=== PATIENT | female | born 1990 | race Caucasian/White ===

== ENCOUNTER 2017-06-23 12:33 | Emergency (ER) | payer SELFPAY ==
[2017-06-23 14:03] LABS: BASOPHIL % 0.1 % (0-2); PLATELET COUNT 177 x10^3mcL (130-400); RED CELL DISTRIBUTION WIDTH 13.5 % (11.5-14.5)
[2017-06-23 14:12] LABS: CALCIUM 7.3 mg/dL (8.5-10.1); CARBON DIOXIDE 25.8 mmol/L (21-32); CHLORIDE SERUM 103 mmol/L (98-107); CREATININE SERUM 0.6 mg/dL (0.6-1.0); GFR1 > 60 mL/min; GLUCOSE SERUM 197 mg/dL (74-106); POTASSIUM SERUM 3.1 mmol/L (3.5-5.1); SODIUM SERUM 135 mmol/L (136-145)
[2017-06-23 14:15] LABS: ALKALINE PHOSPHATASE 53 U/L (46-116); ALT/SGPT 25 U/L (14-59); AMYLASE 34 U/L (25-115); AST/SGOT 18 U/L (15-37); BILIRUBIN TOTAL 0.2 mg/dL (0.20-1.00); LIPASE 104 IU/L (73-393); TOTAL PROTEIN, SERUM 6.4 g/dL (6.4-8.2)
[2017-06-23 15:40] VITALS: BP 101/67
== END 2017-06-23 15:40 | disposition home or self-care (01) ==
LOC: ED 12:33
PROVIDERS: Specialist
DX: E87.6 Hypokalemia (principal)
CPT/HCPCS: 83880; J1885; J2405; J7030; J7042

== ENCOUNTER 2019-02-27 01:09 | Emergency (ER) | payer MEDICAID ==
[~2019-02-27] VITALS: Ht 157.5 cm; Wt 58.1 kg
[2019-02-27 01:15] VITALS: Ht 157.5 cm; Wt 58.1 kg
[2019-02-27 01:57] VITALS: BP 125/77
== END 2019-02-27 01:58 | disposition home or self-care (01) ==
LOC: ED 01:09
DX: H66.92 Otitis media, unspecified, left ear (principal); R51 Headache; J02.9 Acute pharyngitis, unspecified

== ENCOUNTER 2019-03-10 22:37 | Emergency (ER) | payer MEDICAID ==
[~2019-03-10] VITALS: Ht 154.9 cm; Wt 57.6 kg
[2019-03-10 23:45] VITALS: Ht 154.9 cm; Wt 57.6 kg
[2019-03-11 00:59] VITALS: BP 105/67
== END 2019-03-11 00:59 | disposition home or self-care (01) ==
LOC: ED 22:37
DX: K08.89 Other specified disorders of teeth and supporting structures (principal)
CPT/HCPCS: J1885